=== PATIENT | male | born 1930 | race Caucasian/White ===

== ENCOUNTER 2017-02-13 08:40 | Inpatient (IN) | payer MEDICARE, BC ==
[~2017-02-13] VITALS: Ht 170.2 cm; Wt 62.9 kg
[2017-02-13] VITALS (29 sets, daily range): BP systolic 104–166; BP diastolic 52–80; PULSE 53–64; RESP 14–31; Ht 170.2 cm; Wt 62.9 kg
[~2017-02-13 08:40] MED LIST: EPHEDrine SULFATE 50 MG/5 ML SYG ONE
--- NOTE | 2017-02-13 08:53 | HPN ---
Date/Time of Note Date/Time of Note DATE: 02/13/17 TIME: 08:52 Interval H&P Admission Note Pt. seen H&P reviewed: No system changes LEIGHA DEWITT MD Feb 13, 2017 08:53
[2017-02-13] MEDS ORDERED: FLEC50TA PO (09:54)
[2017-02-13] MEDS ORDERED: ATOR20TA38 PO (09:56)
[2017-02-13] MEDS ORDERED: APIX5TAB PO (09:56)
[2017-02-13] MEDS ORDERED: PYRI60SY PO (09:58)
[2017-02-13] MEDS ORDERED: DOXY100T20 PO (09:59)
[2017-02-13] MEDS ORDERED: VIT1CAPS15 PO (10:00)
[2017-02-13] MEDS ORDERED: OMEG1CAP2 PO (10:01)
[2017-02-13] MEDS ORDERED: GLYCOPYRROLATE 0.4 MG INJ ONE (10:07)
[2017-02-13] MEDS ORDERED: FENTAnyl 50 MCG/ML VIAL ONE (10:07)
[2017-02-13] MEDS ORDERED: DEXAMETHASONE 4 MG/ML 1 ML INJ ONE (10:07)
[2017-02-13] MEDS ORDERED: NEOSTIGMINE 3 MG/3 ML SYRINGE ONE (10:07)
[2017-02-13] MEDS ORDERED: ONDANSETRON 4 MG INJ ONE (10:07)
[2017-02-13] MEDS ORDERED: PROPOFOL 20 ML ONE (10:07)
[2017-02-13] MEDS ORDERED: ROPIVACAINE 0.5 % 30 ML VIAL ONE (10:07)
[2017-02-13] MEDS ORDERED: ROCURONIUM 50 MG INJ ONE (10:07)
[2017-02-13] MEDS ORDERED: MIDAZOLAM 1 MG/ML 2 ML INJ ONE (10:07)
[2017-02-13] MEDS ORDERED: CEFAZOLIN 1 GM INJ ONE (10:07)
[2017-02-13] MEDS ORDERED: CA CHLORIDE 10% 10 ML SYRINGE ONE (10:55)
[2017-02-13] MEDS ORDERED: BUPIVACAINE 0.5%/EPI (SDV) 10 ML INJ ONE (10:55)
[2017-02-13] MEDS ORDERED: THROMBIN 5000 UNIT VIAL ONE (10:55)
[2017-02-13] MEDS ORDERED: POLYMYXIN/BACITRACIN 1L IRRIG ONE (10:57)
[2017-02-13] MEDS ORDERED: SOD CHLORIDE 0.9% 100 ML, TRANEXAMIC ACID 3,000 MG IRR SCH ×2 (12:00)
[2017-02-13] MEDS ORDERED: VANCOMYCIN 1 GM (PMX) 250 ML IVPB SCH (12:00)
[2017-02-13] MEDS ORDERED: BUPIVACAINE 0.5% (SDV) 30 ML, morphine SULFATE (PF) 8 MG, EPINEPHrine 0.3 MG, KETOROLAC... IRR SCH ×7 (12:00)
[2017-02-13] MEDS ORDERED: TRANEXAMIC ACID 1,000 MG in SOD CHLORIDE 0.9% 100 ML IVPB SCH (12:00)
[2017-02-13] MEDS ORDERED: GABAPENTIN 300 MG CAP PO SCH ×2 (12:00→21:00)
[2017-02-13] MEDS ORDERED: traMADol 50 MG TAB PO SCH (12:00)
[2017-02-13] MEDS ORDERED: DEXAMETHASONE 1 MG TAB PO SCH (12:00)
[2017-02-13] MEDS ORDERED: MIDAZOLAM 1 MG/ML 2 ML INJ IV PRN (12:30)
[2017-02-13] MEDS ORDERED: HYDROmorphONE (0.2 MG/ML) 10ML SYG IV PRN ×3 (12:30)
[2017-02-13] MEDS ORDERED: MEPERIDINE 25 MG INJ IV PRN (12:30)
[2017-02-13] MEDS ORDERED: LABETALOL HCL 20MG INJ IV PRN (12:30)
[2017-02-13] MEDS ORDERED: DIPHENHYDRAMINE 50 MG INJ IV PRN ×2 (12:30→13:30)
[2017-02-13] MEDS ORDERED: EPHEDrine SULFATE 50 MG/5 ML SYG IV PRN (12:30)
[2017-02-13] MEDS ORDERED: OXYCODONE/ACETAMINOPHEN (5/325) TAB PO PRN ×4 (12:30→13:30)
[2017-02-13] MEDS ORDERED: hydrALAzine 20 MG INJ IV PRN (12:30)
[2017-02-13] MEDS ORDERED: FENTAnyl 50 MCG/ML VIAL IV PRN ×3 (12:30)
[2017-02-13] MEDS ORDERED: ONDANSETRON 4 MG INJ IV PRN ×2 (12:30→13:30)
[2017-02-13] MEDS ORDERED: TRIMETHOBENZAMIDE 100 MG/ML VIAL IM PRN (12:30)
[2017-02-13] MEDS ORDERED: TRANEXAMIC ACID 1,000 MG in SOD CHLORIDE 0.9% 100 ML IV ONE (13:30)
[2017-02-13] MEDS ORDERED: MAGNESIUM HYDROXIDE 30ML CUP PO PRN (13:30)
[2017-02-13] MEDS ORDERED: ZOLPIDEM 5 MG TAB PO PRN (13:30)
[2017-02-13] MEDS ORDERED: KETOROLAC 15 MG INJ IV PRN (13:30)
[2017-02-13] MEDS ORDERED: morphine 4 MG/ML VIAL IV PRN (13:30)
[2017-02-13] MEDS ORDERED: ACETAMINOPHEN 500 MG TAB PO PRN (13:30)
[2017-02-13] MEDS ORDERED: morphine 2 MG INJ IV PRN (13:30)
--- NOTE | 2017-02-13 13:35 | PDOCDIS ---
Discharge Instructions DIAGNOSIS Discharge Diagnosis Failed total shoulder replacement CONDITION Patient Condition: Good HOME CARE INSTRUCTIONS: Diet Instructions: Regular ACTIVITY: Activity Restrictions: Slowly Increase Activity Keep Limb Elevated Bathing Restrictions: Shower FOLLOW UP/APPOINTMENTS Follow-up Plan 2 weeks postoperatively SCHOOL/WORK RELEASE May return to School/Work with: With Restrictions School/Work Release Comment: 5 pounds tabletop usage for the next 6 weeks LEIGHA DEWITT MD Feb 13, 2017 13:35
--- NOTE | 2017-02-13 13:35 | OPR ---
Date/Time of Note Date/Time of Note DATE: 02/13/17 TIME: 13:30 Operative Report Procedure Date: Feb 13, 2017 Preoperative Diagnosis Failed total shoulder replacement with massive, unrepairable rotator cuff tear Postoperative Diagnosis Failed total shoulder replacement, right Operation Performed Revision of right total shoulder replacement to reverse total shoulder replacement Surgeon: LEIGHA DEWITT MD [place] Operator: NICOLE RODRIGUEZ MD Anesthesia: general Estimated Blood Loss: 50 - 100 ml's Complications: None Pt Condition Post Procedure: stable Disposition: PACU Procedure Description Right reverse total shoulder replacement Surgeon: LEIGHA DEWITT MD [place] Operator: NICOLE RODRIGUEZ MD Anesthesia: general Estimated Blood Loss: 100 mls Complications: None Pt Condition Post Procedure: stable Disposition: PACU Procedure Description DIE MAKER BENCH STAMPING SURGEON: Nicole Rodriguez MD was asked to be present at my request as a result of the complexity associated with this procedure including positioning of the extremity, manipulation and protection of the neurovascular structures. In my opinion, the assistance offered by a director medical surgical is insufficient and Dr. Rodriguez should be compensated for her time PROCEDURE IN DETAIL: Following the administration of general endotracheal anesthesia, the patient was placed in the beachchair position and a block was performed. The patient was then sterilely prepped and draped in the usual sterile fashion. The right shoulder was then addressed with a deltopectoral incision approximately 4 cm lateral to the previously made extremely medial incision. This was begun by elevating the deltoid and retracting the conjoined tendon medially. The humeral head was seen to be posteriorly dislocated with a erosion of the glenoid component posteriorly. The rotator cuff superiorly was seen to be completely torn and retracted and the subscapularis remaining tissue was then detached. The humeral head was placed in extreme retroversion. Following some external rotation, the humeral head component was removed. Subsequently an attachment was placed on the humeral shaft and the humeral shaft was removed relatively atraumatically. The shaft was inspected and it appeared to be very solid. A humeral head cut was then made in the appropriate degree of version and inclination in anticipation of a reverse total shoulder replacement. The glenoid was then exposed and a capsulectomy was then performed followed by entry of the canal. The humeral component that had been previously placed was then removed relatively atraumatically. The central hole for the previously placed glenoid was then used for the center point of the baseplate. A 10 mm extended baseplate which was a Appirio baseplate was then impacted with 4 peripheral screws that had very solid fixation. A standard 38 mm glenoid sphere was then applied. And this revealed stable position. Attention was then directed to the humerus. The humerus was then reamed up to the 14 mm size and a Depuy 14 mm long stem reverse total shoulder component was then implanted with a 6 mm liner. The joint was reduced and taken through a full range of motion with no instability. The joint was then thoroughly irrigated and closed in layers. The final cover was a Prenio dressing. An UltraSling was then applied, the patient was extubated and transported to recovery in stable condition tolerating the procedure well. Estimated blood loss was procedure was 100 cc. Postoperative x-rays will be obtained in the recovery room. LEIGHA DEWITT MD Feb 13, 2017 13:34
--- NOTE | 2017-02-13 14:25 | RADRPT ---
PROCEDURE: XR right Shoulder. CLINICAL INDICATION: Postoperative evaluation right shoulder TECHNIQUE: 2 of the right shoulder are available for review. COMPARISON: None available FINDINGS: There is a right shoulder total arthroplasty with overlying soft tissue swelling and soft tissue gas . Difficult to assess alignment given the lack of an AP radiograph. There is no evidence of fractu re. Visualized lungs are clear. IMPRESSION: 1. Recent right shoulder total arthroplasty as above. Limited evaluation of alignment given lack of AP imaging. RPTAT: [facility] .Ronald Marino MD, MD Date Time Electronically viewed and signed by .Ronald Marino MD, MD on 02/13/2017 14:25 .K/
[2017-02-13] MEDS: DEXAMETHASONE 2 MG TAB PO SCH ×2 (17:42→23:12)
[2017-02-13] MEDS: VANCOMYCIN 500MG/NS (PMX) 100 ML IVPB SCH (17:42)
[2017-02-13] MEDS: APIXABAN 5 MG TABLET PO SCH (20:52)
[2017-02-13] MEDS: SENNA/DOCUSATE NA (8.6MG/50MG) TAB PO SCH (20:52)
[2017-02-13] MEDS ORDERED: ATORVASTATIN 20 MG TAB PO SCH (21:00)
[2017-02-13] MEDS: FLECAINIDE 50 MG TAB PO SCH (23:00)
[2017-02-14] MEDS: VANCOMYCIN 500MG/NS (PMX) 100 ML IVPB SCH (03:50)
[2017-02-14] MEDS ORDERED: VANCOMYCIN 500MG/NS (PMX) 100 ML IVPB SCH (05:00)
[2017-02-14] MEDS: DEXAMETHASONE 2 MG TAB PO SCH ×2 (05:38→12:10)
--- NOTE | 2017-02-14 06:43 | PN ---
Date/Time of Note Date/Time of Note DATE: 02/14/17 TIME: 06:42 24 hour Interval Summary Patient is awake and alert with no significant complaints. Physical Exam Physical examination of the right upper extremity reveals that he is neurologically intact. His skin is intact. He has no signs of DVT. The wound is clean and dry. Vital Signs Date Time Temp Pulse Resp B/P Pulse Ox O2 Delivery O2 Flow Rate FiO2 02/13/17 23:07 97.0 56 18 106/52 95 02/13/17 21:00 Room Air 02/13/17 14:04 10.0 Intake and Output 02/13/17 02/13/17 02/14/17 15:00 23:00 07:00 Intake Total 2000 ml 100 ml 400 ml Output Total 350 ml 580 ml Balance 1650 ml 100 ml -180 ml VTE Prophylaxis VTE Prophylaxis Intervention: anti-embolic stocking Lines/Catheters IV Catheter Type: Saline Lock Alvarez in Place: No Assessment/Plan Assessment/Plan Assessment: The patient will begin physical therapy this morning. He will be discharged and followed up in the office in 2 weeks. Medications Medications Home Meds Reported Medications [place]-3 Acid Ethyl Esters (Lovaza) 1 Gm Capsule, 1 GM PO BID, CAP 02/13/17 Vit C/Karen Ac/Lut/Copper/Znox (PRESERVISION LUTEIN SOFTGEL) 1 Each Capsule, 1 EACH PO BID, CAP 02/13/17 Doxycycline Hyclate* (Doxycycline Hyclate*) 100 Mg Tablet.dr, 100 MG PO BID, TAB 02/13/17 Pyridostigmine [place]* (Mestinon* Syrup) 60 Mg/5 Ml Syrup, 30 MG PO QAM, ML TAKE 30MG IN THE AM THEN TAKE 15MG 6 HOURS LATER 02/13/17 Apixaban* (Eliquis*) 5 Mg Tablet, 5 MG PO BID, TAB 02/13/17 Atorvastatin Calcium* (Atorvastatin Calcium*) 20 Mg Tablet, 20 MG PO QHS, #30 TAB 02/13/17 Flecainide Acetate* (Flecainide Acetate*) 50 Mg Tablet, 50 MG PO BID, TAB 02/13/17 LEIGHA DEWITT MD Feb 14, 2017 06:43
--- NOTE | 2017-02-14 06:44 | DS ---
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 Postoperative day #1 he was afebrile, his wound was clean and dry. He is to be discharged followed up in the office in 2 weeks Home Meds Reported Medications [place]-3 Acid Ethyl Esters (Lovaza) 1 Gm Capsule, 1 GM PO BID, CAP 02/13/17 Vit C/Karen Ac/Lut/Copper/Znox (PRESERVISION LUTEIN SOFTGEL) 1 Each Capsule, 1 EACH PO BID, CAP 02/13/17 Doxycycline Hyclate* (Doxycycline Hyclate*) 100 Mg Tablet.dr, 100 MG PO BID, TAB 02/13/17 Pyridostigmine [place]* (Mestinon* Syrup) 60 Mg/5 Ml Syrup, 30 MG PO QAM, ML TAKE 30MG IN THE AM THEN TAKE 15MG 6 HOURS LATER 02/13/17 Apixaban* (Eliquis*) 5 Mg Tablet, 5 MG PO BID, TAB 02/13/17 Atorvastatin Calcium* (Atorvastatin Calcium*) 20 Mg Tablet, 20 MG PO QHS, #30 TAB 02/13/17 Flecainide Acetate* (Flecainide Acetate*) 50 Mg Tablet, 50 MG PO BID, TAB 02/13/17 Primary Care Provider Not On Staff Doctor LEIGHA DEWITT MD Feb 14, 2017 06:44
[2017-02-14 07:42] VITALS: BP 140/67; RESP 20
[2017-02-14] MEDS: FLECAINIDE 50 MG TAB PO SCH (08:53)
[2017-02-14] MEDS: APIXABAN 5 MG TABLET PO SCH (08:53)
[2017-02-14] MEDS: SENNA/DOCUSATE NA (8.6MG/50MG) TAB PO SCH (08:54)
[2017-02-14] MEDS ORDERED: ASPIRIN 81 MG TAB PO SCH (09:00)
[2017-02-14] MEDS ORDERED: PYRIDOSTIGMINE 60 MG TAB PO SCH ×2 (09:00→15:00)
== END 2017-02-14 13:20 | disposition home or self-care (01) | DRG 483 ==
LOC: REC 08:40 → MS1 14:54
PROVIDERS: ADMIT Orthopaedic Surgery; ATTEND Orthopaedic Surgery
PROC: 0RRJ00Z Replacement of Right Shoulder Joint with Reverse Ball and Socket Synthetic Substitute, Open Approach (ICD-10-PCS; principal; 2017-02-13 12:30)
DX: T84.028A Dislocation of other internal joint prosthesis, initial encounter (principal); G70.00 Myasthenia gravis without (acute) exacerbation; I48.0 Paroxysmal atrial fibrillation; Z96.611 Presence of right artificial shoulder joint; E78.5 Hyperlipidemia, unspecified; I35.0 Nonrheumatic aortic (valve) stenosis; I12.9 Hypertensive chronic kidney disease with stage 1 through stage 4 chronic kidney disease, or unspecified chronic kidney disease; N18.2 Chronic kidney disease, stage 2 (mild); Y84.8 Other medical procedures as the cause of abnormal reaction of the patient, or of later complication, without mention of misadventure at the time of the procedure; Y92.019 Unspecified place in single-family (private) house as the place of occurrence of the external cause; Z79.01 Long term (current) use of anticoagulants; Z86.73 Personal history of transient ischemic attack (TIA), and cerebral infarction without residual deficits
CPT/HCPCS: 86999; 88300; 97167; C1776; J0171; J0690; J0735; J1100; J1885; J2250; J2274; J2405; J2710; J2795; J3010; J3370